=== PATIENT | female | born 1985 | race Caucasian/White ===

== ENCOUNTER 2018-08-25 16:28 | Emergency (ER) | payer SELFPAY ==
[~2018-08-25] VITALS: Ht 160 cm; Wt 86.6 kg
[2018-08-25 16:52] VITALS: Ht 160 cm; Wt 86.6 kg
[2018-08-25 18:50] VITALS: BP 100/74
== END 2018-08-25 18:50 | disposition home or self-care (01) ==
LOC: ED 16:28
DX: R05 Cough (principal)

== ENCOUNTER 2018-09-12 14:56 | Emergency (ER) | payer SELFPAY ==
[~2018-09-12] VITALS: Ht 160 cm; Wt 87.1 kg
[2018-09-12 15:10] VITALS: Ht 160 cm; Wt 87.1 kg
[2018-09-12 19:16] VITALS: BP 121/72
== END 2018-09-12 19:17 | disposition home or self-care (01) ==
LOC: ED 14:56
DX: R10.12 Left upper quadrant pain (principal); Z98.890 Other specified postprocedural states